=== PATIENT | female | born 1945 ===

== ENCOUNTER → 2019-06-22 10:13 | Day surgery (SDC) | payer BC ==
[~2019-06-22 10:13] MED LIST: Diazepam TAB(*) 5 MG ONE; Heparin 2 UNITS/ML IVPREMIX* 3,000 ML IV ONE; Heparin(*) 1000 UNIT/ML 10 ML VIAL CATH LAB IV ONE; Iohexol 350 (CONTRAST) 200 ML MDV IV ONE; Lidocaine 1% INJ* 10 MG/ML 30 ML SDV ONE; Midazolam* 1 MG/ML 5 ML VIAL (5 MG) ONE; NS 0.9% 1000 ML** 1,000 ML IV SCH; VERAPAMIL 2.5 MG/ML 2 ML VIAL ** 5 mg/2 ml ONE; diPHENhydraMINE PO* 25 MG ONE; fentaNYL* 50 MCG/ML 2 ML VIAL (100 MCG VIAL) ONE; nitroGLYCERIN DRIP* 25,000 MCG/250 ML BTL ONE
[2019-06-22 16:44] VITALS: BP 142/74
--- NOTE | 2019-06-23 08:32 | CATH ---
CC: Dr. Micky Nelson, [facility] ; Dipesh Urban MD, [employer], [place], [place]; Beba Aguilar MD * CARDIAC CATHETERIZATION REPORT: DATE OF PROCEDURE: 06/22/19 - [facility] CATH PRIMARY CARE PHYSICIAN: Beba Aguilar MD REASON FOR THE CARDIAC CATHETERIZATION: Asked by Dr. Micky Nelson, communications equipment operator assessing the patient for TAVR procedure, to perform diagnostic coronary arteriography to rule out the presence of significant underlying coronary artery disease as part of the workup for TAVR procedure. PROCEDURE: Coronary arteriography. CONSENT: The patient was interviewed and examined in the holding room of the geochemical laboratory technician where the risks and benefits were explained. She understood them and wished to proceed. APPROACH UTILIZED: The right radial artery was initially assessed for size and found to be borderline in nature. Attempts initially were made probing with the guidewire, but because of resistance that was felt, this approach was aborted and the left femoral artery approach was utilized. PRE-CARDIAC CATHETERIZATION LABORATORY RESULTS: Hemoglobin and hematocrit of 12.8 and 38.9 with a platelet count of 201,000. BUN 25, creatinine 0.9. Sodium 137, potassium 3.8, chloride 106, bicarb 27. EQUIPMENT UTILIZED: 1. Left femoral artery sheath was a 5-[place] 11 cm [place] sheath. 2. Diagnostic coronary catheters were a 5-[place] FL4 curved catheter and a 5- [place] FR4 curved catheter. 3. The diagnostic guidewire utilized was a regular length J 0.35 wire. 4. A [employer] hemostasis pad was utilized with manual pressure for hemostasis. MEDICATIONS GIVEN DURING THE PROCEDURE: The patient received 1% lidocaine local and had already received in the holding area Valium and Benadryl for sedation. DESCRIPTION OF PROCEDURE: The patient was brought to the cardiovascular laboratory where a formal time-out was performed. The patient was prepped and draped in a sterile fashion and under ultrasound guidance, the right radial artery was attempted to be cannulated for an approach. Of note despite good blood flow, the wire did not pass easily and as such, this approach was aborted. The left femoral area was anesthetized with 1% lidocaine. The left femoral artery was cannulated with an anterior wall only stick. Sheath was placed. Coronary arteriography was performed. At the end of the case, an injection was made into the sheath and decision was made for hemostasis by manual compression especially in light of the upcoming TAVR procedure. The total contrast used was 60 cc of Omnipaque dye. The radiation exposure included 2.9 minutes of fluoro time. The air kerma radiation was 640 mGy. The DAP radiation was 3874 microgray per meter squared. RESULTS: CORONARY ARTERIOGRAPHY: A. Left coronary artery: 1. Left main - the left main was widely patent and with no significant narrowing noted. 2. Left anterior descending artery. Left anterior descending artery had mild luminal irregularities of 15% seen in the most proximal portion of the artery after the first high diagonal branch. The rest of the vessel tapered as it extend to the apical region. The diagonal branches had no significant disease with the first diagonal branch being a bifurcating vessel, moderate in size. The second, third, and fourth diagonal were small in caliber. 3. Circumflex artery - a nondominant vessel supplying a very thin first obtuse marginal branch with a bifurcating mid obtuse marginal branch and ending in a moderate sized low lying posterior left ventricular branch. There were mild luminal irregularities of 15%. B. Right coronary artery - a dominant vessel supplying the PDA and 4 small caliber posterior left ventricular branches. There were minimal luminal irregularities seen in the proximal segment with no significant narrowings noted throughout. OVERALL ASSESSMENT: No significant underlying coronary artery disease. This information will be shared with Dr. Micky Nelson, the patient's communications equipment operator, who is evaluating the patient for TAVR procedure, and addition to Dr. Nicole Urban MD, [facility] the patient's primary communications equipment operator and Dr. Beba Aguilar, the patient primary care physician. The patient will have a wound check next week. [id number]/[facility] #: [id number] [facility]
== END | disposition home or self-care (01) ==
LOC: CHICATH 10:13
PROVIDERS: ATTEND Internal Medicine Cardiovascular Disease
DX: I35.0 Nonrheumatic aortic (valve) stenosis (principal); I10 Essential (primary) hypertension; E78.5 Hyperlipidemia, unspecified; E11.9 Type 2 diabetes mellitus without complications; R53.83 Other fatigue; R06.00 Dyspnea, unspecified; Z79.4 Long term (current) use of insulin
CPT/HCPCS: 93454; A9270-GY; C1887; J1644; J2250; J3010